=== PATIENT | female | born 1995 ===

== ENCOUNTER 2018-04-12 00:14 | Emergency (ER) | payer OTHER ==
[2018-04-12] MEDS ORDERED: ALPRAZolam TAB* 0.5 MG PO ONE (00:51)
--- NOTE | 2018-04-12 00:58 | ED ---
HPI Cardiac - HPI Summary HPI Summary: This is scribe Gonzalo Mckeon documenting for attending Dr. Aaron Rm MD. This patient is a 22 year old F BIBA accompanied by a person with a chief complaint of heart palpitations since just [employer]. Patient reports lightheadedness , nausea, a bitter taste on her tongue, SOB, difficulty concentrating, and shaking. Pt reports that she was watching a movie at [facility] and her symptoms started during a suicide scene. She left the theater with her friend and then called the ambulance. Pt reports that she is feeling better while she is in the ED. PMHx none. Rx none. I, Dr. Rm, personally performed the services described in this documentation as scribed in my presence and it is both accurate and complete. - History of Current Complaint Chief Complaint: EDGeneral Stated Complaint: GENERAL ILLNESS Time Seen by Provider: 04/12/18 00:48 Hx Obtained From: Patient Onset/Duration: Started Minutes Ago Timing: Constant Initial Severity: Severe Current Severity: Mild Pain Intensity: 0 Pain Scale Used: 0-10 Numeric Associated Signs and Symptoms: Positive: Anxiety, Dizziness, Shortness of Breath , Lightheadedness, Nausea, Palpitations - Allergy/Home Medications Allergies/Adverse Reactions: Allergies Allergy/AdvReac Type Severity Reaction Status Date / Time No Known Allergies Allergy Verified 04/12/18 00:42 Home Medications: Home Medications NK [No Home Medications Reported] 04/12/18 [History Confirmed 04/12/18] PMH/Surg Hx/FS Hx/Imm Hx History: Denies: Hx Dialysis Sensory History: Denies: Hx Deafness Infectious Disease History: No Infectious Disease History: Denies: Traveled Outside the [place] in Last 30 Days - Family History Known Family History: Positive: None - Social History Alcohol Use: None Substance Use Type: Reports: None Smoking Status (MU): Never Smoked Tobacco Review of Systems Positive: Chills Positive: Palpitations Positive: Shortness Of Breath Positive: Nausea Positive: Anxious All Other Systems Reviewed And Are Negative: Yes Physical Exam - Summary Physical Exam Summary: GENERAL: Patient is a well-developed and nourished female who is lying comfortable in the stretcher. Patient is not in any acute respiratory distress. Patient appears somewhat anxious. HEAD AND FACE: No signs of trauma. No ecchymosis, hematomas or skull depressions. No sinus tenderness. EYES: PERRLA, EOMI x 2, No injected conjunctiva, no nystagmus. EARS: Hearing grossly intact. Ear canals and tympanic membranes are within normal limits. MOUTH: Oropharynx within normal limits. NECK: Supple, trachea is midline, no adenopathy, no JVD, no carotid bruit, no c- spine tenderness, neck with full ROM. CHEST: Symmetric, no tenderness at palpation LUNGS: Clear to auscultation bilaterally. No wheezing or crackles. CVS: Regular rate and rhythm, S1 and S2 present, no murmurs or gallops appreciated. ABDOMEN: Soft, non-tender. No signs of distention. No rebound no guarding, and no masses palpated. Bowel sounds are normal. EXTREMITIES: FROM in all major joints, no edema, no cyanosis or clubbing. NEURO: Alert and oriented x 3. No acute neurological deficits. Speech is normal and follows commands. SKIN: Dry and warm Triage Information Reviewed: Yes Vital Signs On Initial Exam: Initial Vitals Temp Pulse Resp BP Pulse Ox 97.6 F 110 24 139/83 100 04/12/18 00:18 04/12/18 00:18 04/12/18 00:18 04/12/18 00:18 04/12/18 00:18 Vital Signs Reviewed: Yes Diagnostics - Vital Signs Vital Signs Temp Pulse Resp BP Pulse Ox 04/12/18 00:18 97.6 F 110 24 139/83 100 - Laboratory Lab Statement: Any lab studies that have been ordered have been reviewed, and results considered in the medical decision making process. Disposition - Course Course Of Treatment: This patient is a 22 year old F BIBA accompanied by a person with a chief complaint of heart palpitations since just [employer]. Patient reports lightheadedness, nausea, a bitter taste on her tongue, SOB, difficulty concentrating, and shaking. Pt reports that she was watching a movie at [employer] and her symptoms started during a suicide scene. She left the theater with her friend and then called the ambulance. Pt reports that she is feeling better while she is in the ED. PMHx none. Rx none. In the ED course the patient was given Alprazolam. The patient will be discharged home. - Diagnoses Provider Diagnoses: Anxiety Discharge - Sign-Out/Discharge Documenting (check all that apply): Patient Departure - discharge - Discharge Plan Condition: Stable Disposition: HOME Patient Education Materials: Anxiety (ED) Referrals: [facility] [place] [facility]YSICIAN REFERRAL [Outside] Additional Instructions: RETURN TO THE EMERGENCY DEPARTMENT FOR CHANGING OR WORSENING SYMPTOMS. FOLLOW UP WITH PCP IN 1-2 DAYS. - Attestation Statements Document Initiated by Scribe: Yes Documenting Scribe: Gonzalo Mckeon Provider For Whom Scribe is Documenting (Include Credential): Aaron Rm MD Scribe Attestation: Gonzalo Correa, scribed for Aaron Rm MD on 04/12/18 at 0134.
[2018-04-12 01:53] VITALS: BP 122/73
== END 2018-04-12 01:52 | disposition home or self-care (01) ==
LOC: ED 00:14
DX: F41.9 Anxiety disorder, unspecified (principal); R06.02 Shortness of breath; R42 Dizziness and giddiness; R00.2 Palpitations; R11.0 Nausea; R68.83 Chills (without fever)
CPT/HCPCS: 99282; A9270-GY